=== PATIENT | male | born 1985 | race American Indian/Alaskan Native ===

== ENCOUNTER 2021-08-02 12:14 | Emergency (ER) | payer SELFPAY ==
[2021-08-02 12:54] VITALS: BP 103/76
[2021-08-02] MEDS ORDERED: IBUPROFEN 800 MG TAB PO SCH (15:42)
--- NOTE | 2021-08-02 15:53 | Emergency Department Report ---
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 Patient states he was working and was suddenly impacted by a metal light fixture to his right parietal scalp causing abrasion secondary impact was right lateral shoulder. Patient states he can not leave work to seek treatment on last night however he presents today complaining of 4/10 headache, abrasions to right anterior lateral parietal scalp and right lateral shoulder. Pain is exacerbated by movement. Pain is relieved by nothing tried. There is no LOC during incident states the patient states he was immediately ambulatory after incident. However pain is worsened over the day. There is no paralysis, no weakness, no deformity, no active bleeding. Patient drove self to ED patient's alert oriented and amatory with steady gait at this time. Severity scale (0 -10): 10 - Related Data Previous Rx's Medication Instructions Recorded Last Taken Type Cyclobenzaprine [Flexeril] 10 mg PO BID PRN #15 tab 08/02/21 Unknown Rx Menthol/Camphor [[place] 50 gm TP QID PRN #1 tube 08/02/21 Unknown Rx Ointment] Naproxen 500 mg PO BID PRN #30 tab 08/02/21 Unknown Rx Allergies Allergy/AdvReac Type Severity Reaction Status Date / Time No Known Allergies Allergy Verified 08/02/21 15:56 ED Review of Systems ROS: Stated complaint: HIT IN HEAD/RIGHT SHOULDER Other details as noted in HPI Constitutional: denies: chills, fever Eyes: denies: eye pain, eye discharge, vision change ENT: denies: ear pain, throat pain Respiratory: denies: cough, shortness of breath, wheezing Cardiovascular: denies: chest pain, palpitations Endocrine: no symptoms reported Gastrointestinal: denies: abdominal pain, nausea, vomiting, diarrhea Genitourinary: denies: urgency, dysuria Musculoskeletal: other (scalp and shoulder pain ). denies: back pain, joint swelling, arthralgia Skin: denies: rash, lesions Neurological: denies: headache, weakness, paresthesias Psychiatric: denies: anxiety, depression Hematological/Lymphatic: denies: easy bleeding, easy bruising ED Past Medical Hx - Medications Home Medications: Home Medications Medication Instructions Recorded Confirmed Last Taken Type Cyclobenzaprine [Flexeril] 10 mg PO BID PRN #15 tab 08/02/21 Unknown Rx Menthol/Camphor [[place] 50 gm TP QID PRN #1 tube 08/02/21 Unknown Rx Ointment] Naproxen 500 mg PO BID PRN #30 tab 08/02/21 Unknown Rx ED Physical Exam - General Limitations: No Limitations General appearance: alert, in no apparent distress - Head Head exam: Present: normocephalic - Expanded Head Exam Expanded Head exam: Present: abrasion (Right anterior parietal scalp), contusion. Absent: laceration, hematoma, racoon eyes, fontaine's sign, general tenderness, tenderness of temporal artery, CSF rhinorrhea, CSF otorrhea 1 - Abrasions 2 x 3 cm superficial tender to touch contused mild swelling no crepitus no step-off no deformity - Eye Eye exam: Present: normal appearance, EOMI Pupils: Present: normal accommodation - ENT ENT exam: Present: normal orophraynx, mucous membranes moist, TM's normal bilaterally - Neck Neck exam: Present: normal inspection, tenderness (Right posterior lateral paraspinous muscle tenderness. There is no crepitus no step-off no posterior vertebral point tenderness range of motion is intact unrestricted to all quadrants.), full ROM. Absent: meningismus, lymphadenopathy, thyromegaly - Expanded Neck Exam Expanded Neck exam: Absent: midline deformity, anterior neck swelling, thyroid mass, c arotid bruit, tracheal deviation - Respiratory Respiratory exam: Absent: wheezes, stridor, chest wall tenderness - Cardiovascular Cardiovascular Exam: Present: regular rate, normal rhythm, normal heart sounds - GI/Abdominal GI/Abdominal exam: Present: soft, normal bowel sounds. Absent: distended, tenderness - Rectal Rectal exam: Present: deferred - Extremities Exam Extremities exam: Present: normal inspection, full ROM, normal capillary refill - Expanded Upper Extremity Exam Right Shoulder Exam: Present: tenderness (Right posterior lateral abrasion 1 x 1 cm superficial erythema no crepitus no step-off no deformity.), abrasion, tenderness over AC joint. Absent: swelling, laceration, ecchymosis, deformity, crepidus, dislocation, erythema Upper Arm exam: Present: full ROM. Absent: tenderness Elbow exam: Present: full ROM. Absent: tenderness Forearm Wrist exam: Present: full ROM. Absent: tenderness Hand Wrist exam: Present: full ROM. Absent: tenderness Neuro motor exam: Present: wrist extension intact, thumb opposition intact, thumb IP flexion intact, thumb adduction intact, fingers 2-5 abduction intact Neurosensory exam: Present: radial nerve intact Vascular: Present: normal capillary refill - Back Exam Back exam: Present: normal inspection, full ROM. Absent: CVA tenderness (R), CVA tenderness (L) - Neurological Exam Neurological exam: Present: alert, oriented X3, CN II-XII intact, normal gait, reflexes normal. Absent: motor sensory deficit - Expanded Neurological Exam Expanded Patient oriented to: Present: person, place, time Speech: Present: fluid speech Cranial nerves: EOM's Intact: Normal, Gag Reflex: Normal, Tongue Deviation: Normal, Nystagmus: Normal, Facial Sensation: Normal Cerebellar function: Finger to Nose: Normal Motor strength exam: RUE: 5, LUE: 5, RLE: 5, LLE: 5 Best Eye Response ([place]): (4) open spontaneously Best Motor Response ([place]): (6) obeys commands Best Verbal Response ([place]): (5) oriented [place] Total: 15 - Psychiatric Psychiatric exam: Present: normal affect, normal mood - Skin Skin exam: Present: warm, dry, intact, normal color. Absent: rash ED Course Vital Signs 08/02/21 12:51 Temperature 98.7 F Pulse Rate 86 Respiratory 16 Rate Blood Pressure 103/76 [Right] O2 Sat by Pulse 98 Oximetry ED Medical Decision Making - Radiology Data Radiology results: report reviewed, image reviewed RIGHT SHOULDER 3 VIEW(S) INDICATION / CLINICAL INFORMATION: blunt trauma shoulder pain. COMPARISON: None available. FINDINGS: BONES / JOINT(S): No acute fracture or subluxation. No significant arthritis. SOFT TISSUES: No significant abnormality. ADDITIONAL FINDINGS: None. IMPRESSION: 1. No acute findings. Signer Name: Tamar Oliver MD Signed: 08/02/2021 4:33 PM Workstation Name: [id number] Transcribed By: DT Dictated By: Rich Oliver MD Electronically Authenticated By: Rich Oliver MD Signed Date/Time: 08/02/211632 DD/ 32 TD/TT: Print Cancel CERVICAL SPINE 5 VIEWS INDICATION / CLINICAL INFORMATION: blunt trauma , neck pain. COMPARISON: None available. FINDINGS: [place]: No acute fracture. No significant malalignment. DISC SPACES / FACET JOINTS:No significant abnormality. PARASPINAL SOFT TISSUES:No significant abnormality. ADDITIONAL FINDINGS: None. IMPRESSION: 1. No acute findings. Signer Name: Tamar Oliver MD Signed: 08/02/2021 4:34 PM Workstation Name: [id number] Transcribed By: DT Dictated By: iRch Oliver MD Electronically Authenticated By: Rich Oliver MD Signed Date/Time: 08/02/211633 DD/ 32 TD/TT: - Medical Decision Making X-ray cervical spine and right shoulder no fracture no subluxation no dislocation pain improved with medications given in ED. Plan bacitracin ointment to the abrasions. NSAIDs as needed headache. Neck and shoulder exercises as directed. Follow-up with your doctor in 2 to 3 days. Follow-up with your Workmen's Comp[employer] doctor per company policy. Turn to emergency department should symptoms worsen. Critical care attestation.: If time is entered above; I have spent that time in minutes in the direct care of this critically ill patient, excluding procedure time. ED Disposition Clinical Impression: Neck muscle strain Qualifiers: Encounter type: initial encounter Qualified Code(s): S16.1XXA - Strain of muscle, fascia and tendon at neck level, initial encounter Right shoulder strain Qualifiers: Encounter type: initial encounter Qualified Code(s): S46.911A - Strain of unspecified muscle, fascia and tendon at shoulder and upper arm level, right arm, initial encounter Scalp abrasion Qualifiers: Encounter type: initial encounter Qualified Code(s): S00.01XA - Abrasion of scalp, initial encounter Scalp contusion Qualifiers: Encounter type: initial encounter Qualified Code(s): S00.03XA - Contusion of scalp, initial encounter Disposition: HOME / SELF CARE / HOMELESS Is pt being admited?: No Does the pt Need Aspirin: No Condition: Stable Instructions: Cervical Strain and Sprain Rehab-Sports[facility], Facial or Scalp Contusion, Shoulder Sprain Additional Instructions: Take medications as prescribed, moist heat therapy as directed. Follow-up with your primary care doctor in 2 to 3 days. Follow-up with your Workmen's Comp[employer] doctor per company policy. Return to emergency department should symptoms worsen Prescriptions: Cyclobenzaprine [Flexeril] 10 mg PO BID PRN #15 tab PRN Reason: Muscle Spasm Naproxen 500 mg PO BID PRN #30 tab PRN Reason: Pain Menthol/Camphor [[place] Ointment] 50 gm TP QID PRN #1 tube PRN Reason: Muscle Spasm Referrals: CARLOS ALBERTO DUPREE MD [Staff Physician] - 3-5 Days Forms: Work/School Release Form(ED) Time of Disposition: 17:09
--- NOTE | 2021-08-02 16:38 | XRay Report ---
CERVICAL SPINE 5 VIEWS INDICATION / CLINICAL INFORMATION: blunt trauma , neck pain. COMPARISON: None available. FINDINGS: VERTEBRAE: No acute fracture. No significant malalignment. DISC SPACES / FACET JOINTS:No significant abnormality. PARASPINAL SOFT TISSUES:No significant abnormality. ADDITIONAL FINDINGS: None. IMPRESSION: 1. No acute findings. Signer Name: Tamar Oliver MD Signed: 08/02/2021 4:34 PM Workstation Name: [id number]
--- NOTE | 2021-08-02 16:38 | XRay Report ---
RIGHT SHOULDER 3 VIEW(S) INDICATION / CLINICAL INFORMATION: blunt trauma shoulder pain. COMPARISON: None available. FINDINGS: BONES / JOINT(S): No acute fracture or subluxation. No significant arthritis. SOFT TISSUES: No significant abnormality. ADDITIONAL FINDINGS: None. IMPRESSION: 1. No acute findings. Signer Name: Tamar Oliver MD Signed: 08/02/2021 4:33 PM Workstation Name: [id number]
[2021-08-02] MEDS ORDERED: TETANUS,DIPH,PERTUSS(ACELL) VACCINE 0.5 ML SYRINGE IM ONE (17:00)
== END 2021-08-02 17:09 | disposition home or self-care (01) ==
LOC: ED 12:14
DX: S00.03XA Contusion of scalp, initial encounter (principal); S46.911A Strain of unspecified muscle, fascia and tendon at shoulder and upper arm level, right arm, initial encounter; S16.1XXA Strain of muscle, fascia and tendon at neck level, initial encounter; S00.01XA Abrasion of scalp, initial encounter; X58.XXXA Exposure to other specified factors, initial encounter; Y93.89 Activity, other specified; Y92.89 Other specified places as the place of occurrence of the external cause; Y99.8 Other external cause status
CPT/HCPCS: 72040; 90471; 90715; 99283